=== PATIENT | male | born 1985 | race Caucasian/White ===

== ENCOUNTER 2019-12-23 17:17 | Emergency (ER) | payer OTHER ==
[2019-12-23 17:30] VITALS: BP 142/85; PULSE 82; TEMP 98.9; BMI 27.1
[2019-12-23] MEDS ORDERED: LIDOCAINE 5% TOPICAL PATCH TP ONE (18:22)
[2019-12-23] MEDS ORDERED: NAPROXEN 500 MG TABLET PO ONE (18:22)
[2019-12-23] MEDS ORDERED: LIDOCAINE 5% TOPICAL PATCH ONE (18:25)
[2019-12-23] MEDS ORDERED: NAPROXEN 500 MG TABLET ONE (18:25)
--- NOTE | 2019-12-23 18:27 | PDOC ---
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 Patient report having similar symptoms when he gets aggravation to his chronic back pain. Denies radiculopathy, urinary or fecal incontinence. Denies saddle paresthesia. Patient reports seeing orthopedics a year ago for chronic back pain an MRI was done and was referred to pain management and chiropractor. Denies any other symptoms. Patient has not taken anything for back pain Occurred: reports: just prior to arrival Past History - Medical History Allergies/Adverse Reactions: Allergies Allergy/AdvReac Type Severity Reaction Status Date / Time No Known Allergies Allergy Verified 12/23/19 17:30 Home Medications: Ambulatory Orders Naproxen [Naprosyn -] 500 mg PO BID #30 tablet 08/11/14 Lidocaine 5% Patch [Lidoderm -] 1 patch TP DAILY #30 patch 12/23/19 Methocarbamol [Robaxin -] 500 mg PO BID PRN #14 tablet 12/23/19 Methylprednisolone [Medrol Dose Parveen] 4 mg PO ASDIR #21 tablet 12/23/19 COPD: No - Psycho-Social/Smoking History Smoking History: Never smoked Have you smoked in the past 12 months: No Information on smoking cessation initiated: No - Substance Abuse Hx (Audit-C & DAST Scrn) How often the patient has a drink containing alcohol: Monthly or less Score: In Men: 4 or > Positive; In Women: 3 or > Positive: 1 Screen Result (Pos requires Nsg. Audit-10AR): Negative In the last yr the pt used illegal drug/Rx for NonMed reason: No Score: Yes response is considered Positive: 0 Screen Result (Positive result requires Nsg. DAST-10): Negative Review of Systems - Review of Systems Able to Perform ROS?: Yes Is the patient limited [place] proficient: No Constitutional: No: Chills, Fever, Malaise HEENTM: No: Symptoms Reported, See HPI, Eye Pain, Blurred Vision, Tearing, Recent change in vision, Double Vision, Cataracts, Ear Pain, Ocular Prothesis, Ear Discharge, Nose Pain, Nose Congestion, Tinnitus, Nose Bleeding, Hearing Loss, Throat Pain, Throat Swelling, Mouth Pain, Dental Problems, Difficulty Swallowing, Mouth Swelling, Other Respiratory: No: Symptoms reported, See HPI, Cough, Orthopnea, Shortness of Breath, SOB with Exertion, SOB at Rest, Stridor, Wheezing, Productive cough, Hemoptysis, Other Cardiac (ROS): No: Symptoms Reported ABD/GI: No: Symptoms Reported, Nausea, Vomiting Musculoskeletal: Yes: Symptoms Reported, See HPI, Back Pain Integumentary: No: Symptoms Reported Neurological: No: Numbness, Tingling, Weakness, Dizziness All Other Systems: Reviewed and Negative *Physical Exam - Vital Signs Last Vital Signs Temp Pulse Resp BP Pulse Ox 98.9 F 82 18 142/85 99 12/23/19 17:27 12/23/19 17:27 12/23/19 17:27 12/23/19 17:27 12/23/19 17:27 - Physical Exam 12/23/19 18:50 GENERAL: Well developed, well nourished. Awake and alert. No acute distress. PULMONARY: No evidence of respiratory distress. MUSCULOSKELETAL : mild tenderness over posterior paravertebral muscle or thoracic spine of T8-T10 on bilateral sides. No bony deformities SKIN: Warm and dry. Normal capillary refill. NEUROLOGICAL: Alert, awake, appropriate. No motor deficits in the lower extremities. Gait is normal without ataxia. PSYCHIATRIC: Cooperative. Good eye contact. Appropriate mood and affect. General Appearance: Yes: Nourished, Appropriately Dressed. 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 Patient report having similar symptoms when he gets aggravation to his chronic back pain. Denies radiculopathy, urinary or fecal incontinence. Denies saddle paresthesia. Patient reports seeing orthopedics a year ago for chronic back pain an MRI was done and was referred to pain management and chiropractor. Denies any other symptoms. Patient has not taken anything for back pain Exam significant for mild tenderness to right paravertebral muscle of lower lumbosacral spine of L5-S1 which is worse with external rotation of the hip to the left. Patient walking with normal gait. Lidoderm and naproxen 500 mg p.o. ordered for back pain. Patient stable for discharge Medrol pack p.o. for pain, Lidoderm as needed for pain and Robaxin For spasm with advised to do hot compresses and follow-up back with orthopedics and chiropractor Discharge - Discharge Information Problems reviewed: Yes Clinical Impression/Diagnosis: Low back pain Qualifiers: Chronicity: chronic Back pain laterality: bilateral Sciatica presence: without sciatica Qualified Code(s): M54.5 - Low back pain Condition: Stable Disposition: HOME - Admission No - Additional Discharge Information Prescriptions: Lidocaine 5% Patch [Lidoderm -] 1 patch TP DAILY #30 patch Methylprednisolone [Medrol Dose Parveen] 4 mg PO ASDIR #21 tablet Methocarbamol [Robaxin -] 500 mg PO BID PRN #14 tablet PRN Reason: Back Pain - Follow up/Referral Referrals: Mark Flowers [Primary Care Provider] - - Patient Discharge Instructions Patient Printed Discharge Instructions: DI for Low Back Pain Additional Instructions: Take prescribed medication as prescribed for back pain. Apply heat to lower back as needed for pain. Follow-up with your chiropractor and pain management as discussed - Post Discharge Activity
== END 2019-12-23 18:30 | disposition home or self-care (01) ==
LOC: JERFT 17:17
DX: M54.5 Low back pain (principal)
CPT/HCPCS: 99283-25

== ENCOUNTER 2020-09-29 11:20 | Emergency (ER) | payer OTHER ==
[2020-09-29 11:46] VITALS: BP 122/75; PULSE 80; TEMP 98.5; BMI 29.2
[2020-09-29] MEDS ORDERED: METHOCARBAMOL 500 MG TABLET PO ONE (12:12)
[2020-09-29] MEDS ORDERED: LIDOCAINE 5% TOPICAL PATCH TP ONE (12:13)
[2020-09-29] MEDS ORDERED: KETOROLAC TROMETHAMINE 60 MG/2 ML VIAL IM ONE (12:13)
[2020-09-29] MEDS ORDERED: LIDOCAINE 5% TOPICAL PATCH ONE (12:15)
[2020-09-29] MEDS ORDERED: METHOCARBAMOL 500 MG TABLET ONE (12:16)
[2020-09-29] MEDS ORDERED: KETOROLAC TROMETHAMINE 30 MG/1 ML VIAL ONE (12:16)
== END 2020-09-29 12:21 | disposition home or self-care (01) ==
LOC: JERFT 11:20
PROC: 3E0233Z Introduction of Anti-inflammatory into Muscle, Percutaneous Approach (ICD-10-PCS; principal; 2020-09-29)
DX: M54.5 Low back pain (principal)
CPT/HCPCS: 99284-25

== ENCOUNTER 2021-06-11 19:40 | Emergency (ER) | payer OTHER ==
[2021-06-11 19:50] VITALS: BP 133/92; PULSE 90; TEMP 98.3; BMI 29.2
[2021-06-11] MEDS ORDERED: LIDOCAINE 5% TOPICAL PATCH TP ONE (21:04)
[2021-06-11] MEDS ORDERED: KETOROLAC TROMETHAMINE 60 MG/2 ML VIAL IM ONE (21:04)
[2021-06-11] MEDS ORDERED: ACETAMINOPHEN 325 MG TABLET (FP) PO ONE (21:04)
[2021-06-11] MEDS ORDERED: METHOCARBAMOL 500 MG TABLET PO ONE (21:05)
[2021-06-11] MEDS ORDERED: LIDOCAINE 5% TOPICAL PATCH ONE ×2 (21:26→21:31)
[2021-06-11] MEDS ORDERED: KETOROLAC TROMETHAMINE 30 MG/1 ML VIAL ONE ×2 (21:26→21:31)
[2021-06-11] MEDS ORDERED: METHOCARBAMOL 500 MG TABLET ONE (21:26)
[2021-06-11] MEDS ORDERED: ACETAMINOPHEN 500 MG TABLET (FP) ONE (21:27)
[2021-06-11] MEDS ORDERED: LIDOCAINE PATCH REMOVAL MC SCH (22:00)
== END 2021-06-11 21:43 | disposition home or self-care (01) ==
LOC: JERFT 19:40
PROC: 3E0233Z Introduction of Anti-inflammatory into Muscle, Percutaneous Approach (ICD-10-PCS; principal; 2021-06-11)
DX: M54.50 Low back pain, unspecified (principal)
CPT/HCPCS: 72100-TC-FY; 99284-25

== ENCOUNTER 2022-09-17 09:49 | Emergency (ER) | payer OTHER ==
[2022-09-17 09:54] VITALS: BP 126/91; PULSE 82; RESP 20; TEMP 97.8; BMI 29.9
[2022-09-17] MEDS ORDERED: LIDOCAINE 5% TOPICAL PATCH TP ONE (10:55)
[2022-09-17] MEDS ORDERED: LIDOCAINE 5% TOPICAL PATCH ONE (10:58)
[2022-09-17] MEDS ORDERED: LIDOCAINE PATCH REMOVAL MC SCH (22:00)
== END 2022-09-17 11:04 | disposition home or self-care (01) ==
LOC: JER 09:49
DX: M54.9 Dorsalgia, unspecified (principal); G89.29 Other chronic pain
CPT/HCPCS: 99283-25

== ENCOUNTER 2023-03-05 22:52 | Emergency (ER) | payer BC, OTHER ==
[2023-03-05 22:56] VITALS: BP 145/98; PULSE 80; RESP 18; TEMP 98.3; BMI 28.5
== END 2023-03-05 23:28 | disposition home or self-care (01) ==
LOC: JER 22:52
DX: H92.02 Otalgia, left ear (principal); H92.12 Otorrhea, left ear; H60.392 Other infective otitis externa, left ear
CPT/HCPCS: 99283-25